=== PATIENT | male | born 1945 | race Caucasian/White ===

== ENCOUNTER 2019-06-14 07:19 | Emergency (ER) | payer OTHER ==
[2019-06-14 07:29] VITALS: BMI 31.9
[2019-06-14] MEDS ORDERED: SODIUM CHLORIDE 1,000 ML IV STA (07:41)
[2019-06-14] MEDS ORDERED: ACETAMINOPHEN 1000 MG/100 ML VIAL (NON FORMULARY) IVPB ONE (07:41)
[2019-06-14] MEDS ORDERED: PANTOPRAZOLE SODIUM 40 MG in SODIUM CHLORIDE 100 ML IVPB ONE (07:41)
[2019-06-14] MEDS ORDERED: ONDANSETRON 4 MG/2 ML VIAL IVPB ONE (07:41)
[2019-06-14] MEDS ORDERED: ONDANSETRON 4 MG/2 ML VIAL ONE (07:54)
[2019-06-14] MEDS ORDERED: ACETAMINOPHEN INJECTION 100 ML IVPB ONE (07:54)
--- NOTE | 2019-06-14 07:57 | PDOC ---
History of Present Illness - General Chief Complaint: Vomiting/Diarrhea Stated Complaint: N/V/D Time Seen by Provider: 06/14/19 07:20 - History of Present Illness Initial Comments: 06/14/19 07:52 74 M with h/o DM, HTN, HLD, CAD/CABG, presenting to ED with abdominal pain, N+V+ D. Pt states that he started having diarrhea 3 days ago. Endorses associated crampy lower abdominal pain. Pt reports 3 episodes of vomiting over the past 2 days as well. States that it was "dark" in color. Pt also endorses dark black stool. However, he states he has been drinking pepto bismol. Denies any hematemesis or BRBPR. Had fever last night but did not take his temperature. Denies CP/SOB. Pt is on aspirin, no AC. No prior h/o GI bleed. Past History - Past Medical History Allergies/Adverse Reactions: Allergies Allergy/AdvReac Type Severity Reaction Status Date / Time No Known Allergies Allergy Verified 06/14/19 07:21 Home Medications: Ambulatory Orders Aspirin [ASA -] 81 mg PO DAILY 06/14/19 Atorvastatin Calcium [Lipitor] 20 mg PO DAILY 06/14/19 Enalapril Maleate [Vasotec] 5 mg PO DAILY 06/14/19 Glipizide Xl [Glucotrol Xl -] 5 mg PO DAILY 06/14/19 Metformin HCl [Glucophage] 500 mg PO BID 06/14/19 Metoprolol Tartrate [Lopressor -] 25 mg PO BID 06/14/19 Omeprazole 40 mg PO DAILY 06/14/19 Cardiac Disorders: Yes COPD: No HTN: Yes Hypercholesterolemia: Yes - Surgical History Cardiac Surgery: Yes (OPEN HEART) - Suicide/Smoking/Psychosocial Hx Smoking History: Never smoked Hx Alcohol Use: No Drug/Substance Use Hx: No Review of Systems - Review of Systems Comments:: 06/14/19 07:55 GENERAL/CONSTITUTIONAL: + fever, no chills. No weakness. HEAD, EYES, EARS, NOSE AND THROAT: No change in vision. No ear pain or discharge. No sore throat. CARDIOVASCULAR: No chest pain, no shortness of breath, no loss of consciousness RESPIRATORY: No cough, wheezing, or hemoptysis. GASTROINTESTINAL: + abdominal pain, nausea, vomiting, and diarrhea GENITOURINARY: No dysuria, frequency, or change in urination. MUSCULOSKELETAL: No joint or muscle swelling or pain. No neck or back pain. SKIN: No rash NEUROLOGIC: No vertigo, no change in strength/sensation. ENDOCRINE: No increased thirst. No abnormal weight change. HEMATOLOGIC/LYMPHATIC: No anemia, easy bleeding, or history of blood clots. ALLERGIC/IMMUNOLOGIC: No hives or skin allergy. *Physical Exam - Vital Signs Last Vital Signs Temp Pulse Resp BP Pulse Ox 101.7 F H 101 H 18 153/87 96 06/14/19 07:20 06/14/19 07:20 06/14/19 07:20 06/14/19 07:20 06/14/19 07:20 - Physical Exam Comments: 06/14/19 07:55 "GENERAL: Awake, alert, and fully oriented, in no acute distress. HEAD: No signs of trauma EYES: PERRLA, EOMI, sclera anicteric, conjunctiva clear ENT: Auricles normal inspection, hearing grossly normal, nares patent, oropharynx clear without exudates. Moist mucosa NECK: Nontender, no stepoffs, Normal ROM, supple, no lymphadenopathy, JVD, or masses LUNGS: Breath sounds equal, clear to auscultation bilaterally. No wheezes, and no crackles HEART: Regular rate and rhythm, normal S1 and S2, no murmurs, rubs or gallops ABDOMEN: + RLQ and LLQ tenderness, normoactive bowel sounds. No guarding, no rebound. No masses EXTREMITIES: Normal range of motion, no edema. No clubbing or cyanosis. No cords, erythema, or tenderness NEUROLOGICAL: Cranial nerves II through XII intact. 5/5 strength and sensation in all extremities, Normal speech, normal gait, normal cerebellar function SKIN: Warm, Dry, normal turgor, no rashes or lesions noted. RECTAL: + dark stool ED Treatment Course - LABORATORY CBC & Chemistry Diagram: 06/14/19 07:55 06/14/19 07:55 - RADIOLOGY Radiology Studies Ordered: Category Date Time Status CHEST X-RAY PORTABLE* [RAD] Stat Radiology 06/14/19 07:37 Ordered Medical Decision Making - Medical Decision Making 06/14/19 07:56 74 M with lower abdominal pain, N+V+D. Pt febrile in ED, will r/o infectious process such as appendicitis vs colitis/diverticulitis. Pt also reporting dark stools and emesis. Will check FOBT to r/o GI bleed. - Labs, cultures - CXR, UA - CTAP - IVF, tylenol, PPI 06/14/19 08:07 Rectal exam reveals dark stool, but guaiac negative. Dark color likely due to pepto bismol. Pt with normal CBC, no evidence of anemia. 06/14/19 11:20 CT negative for colitis/diverticulitis/appendicitis. Pt's vitals now normalized, afebrile Suspect viral gastroenteritis Will PO challenge 06/14/19 11:35 Pt tolerating PO without N/V Still complaining of diarrhea. Will give imodium. Repeat abdominal exam benign, nontender Pt is well appearing, with normal vitals. Clinically stable for DC at this time. I discussed the physical exam findings, ancillary test results and final diagnoses with the patient. I answered all of the patient's questions. The patient was satisfied with the care received and felt comfortable with the discharge plan and treatment plan. The patient agrees to follow up with the primary care physician within 24-72 hours. *DC/Admit/Observation/Transfer Diagnosis at time of Disposition: Abdominal pain, Nausea & vomiting, Diarrhea - Discharge Dispostion Disposition: HOME Condition at time of disposition: Stable - Referrals Referrals: Eusebio Shirley MD [Staff Physician] - - Patient Instructions Printed Discharge Instructions: DI for Abdominal Pain-Adult Additional Instructions: Your bloodwork and CT scan today were normal. Drink plenty of fluids to stay hydrated. If you experience worsening pain, vomiting, persistent or high fevers, bloody or dark black stools or vomit, or any other concerning symptoms, return to the ER immediately. Otherwise, follow up with your primary doctor and hand mixer within 1 week. Call the number provided to make an appointment with our GI doctor. - Post Discharge Activity - Attestations Physician Attestion: 06/14/19 11:25 I, Dr. Pal Carrillo MD, attest that this document has been prepared under my direction and personally reviewed by me in its entirety. I further attest, that it accurately reflects all work, treatment, procedures and medical decision -making performed by me.
[2019-06-14 08:14] LABS: BASO % 0.2 % (0-2.0); HEMATOCRIT 39.4 % (35.4-49); HEMOGLOBIN 13.6 GM/dl (11.7-16.9); LYMPH % 10.7 % (8-40); MCH 30.4 pg (25.7-33.7); MCHC 34.5 g/dl (32.0-35.9); MEAN CELL VOLUME 88.1 fl (80-96); MEAN PLT VOLUME 10.9 fl (7.5-11.1); MONO % 6.9 % (3.8-10.2); NEUT % 82.2 % (42.8-82.8); PLATELET COUNT 124 K/MM3 (134-434); RBC 4.47 M/mm3 (4.00-5.60); RDW 12.3 % (11.9-15.9); WHITE BLOOD COUNT 4.2 K/mm3 (4.0-10.8)
[2019-06-14] MEDS ORDERED: PANTOPRAZOLE SODIUM 40 MG VIAL ONE (08:21)
[2019-06-14 08:25] LABS: ALBUMIN 3.8 g/dl (3.4-5.0); BILIRUBIN,TOTAL 1.4 mg/dl (0.2-1); CALCIUM 8.7 mg/dl (8.5-10); CREATININE 1.4 mg/dl (0.55-1.3); POTASSIUM 3.2 mmol/L (3.5-5.1); TOT PROT 6.9 g/dl (6.4-8.2)
[2019-06-14 08:32] LABS: INR 1.36 (0.82-1.09); PROTHROMBIN TIME (PATIENT) 15.1 SEC (10.2-13.0)
[2019-06-14 09:09] LABS: EPITHELIAL CELLS FEW /hpf
[2019-06-14 09:10] LABS: URINE MUCUS 1+
[2019-06-14 09:11] LABS: URINE TRICHOMONAS 1+
[2019-06-14 09:17] LABS: VENOUS PC02 30.6 mmHg (38-52); VENOUS PH 7.44 (7.31-7.41); VENOUS PO2 82.4 mmHg (28-48)
[2019-06-14 09:31] VITALS: BP 136/63; PULSE 79; TEMP 99.8
[2019-06-14] MEDS ORDERED: LOPERAMIDE HCL 2 MG CAPSULE PO ONE (11:34)
[2019-06-14] MEDS ORDERED: LOPERAMIDE HCL 2 MG CAPSULE ONE (11:39)
--- NOTE | 2019-06-14 11:40 | EKG ---
Test Reason : Blood Pressure : / mmHG Vent. Rate : 086 BPM Atrial Rate : 086 BPM P-R Int : 132 ms QRS Dur : 092 ms QT Int : 376 ms P-R-T Axes : 015 023 106 degrees QTc Int : 449 ms NORMAL SINUS RHYTHM SEPTAL INFARCT , AGE UNDETERMINED ABNORMAL ECG NO PREVIOUS ECGS AVAILABLE Confirmed by JEZ SIMS, GLENNY ([id number]) on 06/14/2019 11:40:35 AM Referred By: SAHARA LORENZO Confirmed By:GLENNY STORY MD
[2019-06-14] MEDS ORDERED: IBUPROFEN 600 MG TABLET (FP) PO ONE ×2 (11:57→12:00)
== END 2019-06-14 12:22 | disposition home or self-care (01) ==
LOC: FER 07:19
PROC: 3E033NZ Introduction of Analgesics, Hypnotics, Sedatives into Peripheral Vein, Percutaneous Approach (ICD-10-PCS; principal; 2019-06-14)
PROC: 3E033GC Introduction of Other Therapeutic Substance into Peripheral Vein, Percutaneous Approach (ICD-10-PCS; 2019-06-14)
PROC: 3E0337Z Introduction of Electrolytic and Water Balance Substance into Peripheral Vein, Percutaneous Approach (ICD-10-PCS; 2019-06-14)
DX: R10.9 Unspecified abdominal pain (principal); R11.2 Nausea with vomiting, unspecified; R19.7 Diarrhea, unspecified; I10 Essential (primary) hypertension; E78.00 Pure hypercholesterolemia, unspecified; I51.9 Heart disease, unspecified
CPT/HCPCS: 36415; 71045-TC-FY; 74177-TC; 80053; 81003; 81015; 82272; 82803; 83605; 83690; 84484; 85025; 85610; 85730; 87040; 87086; 93005; 99283-25; J0131; J7030

== ENCOUNTER 2019-06-30 16:15 | Inpatient (IN) | payer OTHER | END 2019-07-01 15:47 | disposition home or self-care (01) | LOC: FM/S 07-01 00:26 → FER 16:15 → FM/S 19:52 ==